=== PATIENT | male | born 1990 | race Caucasian/White ===

== ENCOUNTER → 2021-09-11 | Day surgery (SDC) | payer OTHER ==
[~2021-09-11] MED LIST: OMEPRAZOLE40 MG PO
== END | disposition home or self-care (01) ==
LOC: OR 07:24
DX: K62.5 Hemorrhage of anus and rectum (principal); R19.7 Diarrhea, unspecified; K64.4 Residual hemorrhoidal skin tags; K21.9 Gastro-esophageal reflux disease without esophagitis; E66.3 Overweight; R63.4 Abnormal weight loss; Z68.27 Body mass index [BMI] 27.0-27.9, adult; Z79.899 Other long term (current) drug therapy; Z20.822 Contact with and (suspected) exposure to COVID-19
CPT/HCPCS: J2704; J7040

== ENCOUNTER 2021-09-30 17:40 | Emergency (ER) | payer OTHER | END 2021-09-30 17:50 | disposition home or self-care (01) | LOC: ER1 17:40 | DX: M25.512 Pain in left shoulder (principal); G89.29 Other chronic pain; K21.9 Gastro-esophageal reflux disease without esophagitis | CPT/HCPCS: 99283 ==